=== PATIENT | female | born 1985 | race African-American/Black ===

== ENCOUNTER 2017-11-11 04:40 | Emergency (ER) | payer SELFPAY ==
[2017-11-11 05:02] VITALS: BMI 32.2
--- NOTE | 2017-11-11 05:59 | PDOC ---
History of Present Illness - General Chief Complaint: Cold Symptoms Stated Complaint: COUGH WITH CHEST PAIN Time Seen by Provider: 11/11/17 05:04 History Source: Patient Exam Limitations: No Limitations - History of Present Illness Initial Comments: 11/11/17 05:54 Patient is a 31-year-old female with history of seasonal allergies, PE, C- section 1 complaining of cough, congestion, body ache, sneezing and chest pain with coughing 3 days. States her daughter was sick times one week. Denies fever , shortness of breath, palpitations. PMHX: As above PSOCHX: occ etoh, neg drug, neg cig ALL: NKDA GENERAL/CONSTITUTIONAL: [No fever or chills. No weakness. No weight change.] HEAD, EYES, EARS, NOSE AND THROAT: [No change in vision. No ear pain or discharge. No sore throat.] CARDIOVASCULAR: [No chest pain or shortness of breath.] RESPIRATORY: (+) cough, (-) wheezing, or hemoptysis.] GASTROINTESTINAL: [No nausea, vomiting, diarrhea or constipation. No rectal bleeding.] GENITOURINARY: [No dysuria, frequency, or change in urination.] MUSCULOSKELETAL: [No joint or muscle swelling or pain. No neck or back pain.] SKIN AND BREASTS: [No rash or easy bruising.] NEUROLOGIC: [No headache, vertigo, loss of consciousness, or loss of sensation.] PSYCHIATRIC: [No depression or anxiety.] ENDOCRINE: [No increased thirst. No abnormal weight change.] HEMATOLOGIC/LYMPHATIC: [No anemia, easy bleeding, or history of blood clots.] ALLERGIC/IMMUNOLOGIC: [No hives or skin allergy. No latex allergy.] GENERAL: [The patient is awake, alert, and fully oriented, in mild distress.] HEAD: [Normal with no signs of trauma.] EYES: [Pupils equal, round and reactive to light, extraocular movements intact, sclera anicteric, conjunctiva clear.] ENT: [Ears normal, nares patent, oropharynx clear without exudates. Moist mucous membranes, (+) rhinorrhea] NECK: [Normal range of motion, supple without lymphadenopathy, JVD, or masses.] LUNGS: [Breath sounds equal, clear to auscultation bilaterally. No wheezes, and no crackles.] HEART: [Regular rate and rhythm, normal S1 and S2 without murmur, rub.] ABDOMEN: [Soft, nontender, normoactive bowel sounds. No guarding, no rebound. No masses.] EXTREMITIES: [Normal range of motion, no edema. No clubbing or cyanosis. No cords, erythema, or tenderness.] NEUROLOGICAL: [Cranial nerves II through XII grossly intact. Normal speech, normal gait.] PSYCH: [Normal mood, normal affect.] SKIN: [Warm, Dry, normal turgor, no rashes or lesions noted.] Past History - Past Medical History Allergies/Adverse Reactions: Allergies Allergy/AdvReac Type Severity Reaction Status Date / Time No Known Allergies Allergy Verified 11/11/17 05:01 Home Medications: Ambulatory Orders NK [No Known Home Medication] 11/11/17 COPD: No - Immunization History Immunization Up to Date: No - Suicide/Smoking/Psychosocial Hx Smoking History: Never smoked Have you smoked in the past 12 months: No Information on smoking cessation initiated: No Hx Alcohol Use: No Drug/Substance Use Hx: No *Physical Exam - Vital Signs Last Vital Signs Temp Pulse Resp BP Pulse Ox 98.5 F 98 H 20 113/65 99 11/11/17 04:42 11/11/17 04:42 11/11/17 04:42 11/11/17 04:42 11/11/17 04:42 Medical Decision Making - Medical Decision Making 11/11/17 05:59 Patient is a 31-year-old female with history of seasonal allergies, PE, C- section 1 complaining of cough, congestion, body ache, sneezing and chest pain with coughing 3 days, consitient with viral illness. cxr r/o pneumonia, flu swab Influenza neg upreg neg cxr pending I discussed the physical exam findings, ancillary test results and final diagnoses with the patient. I answered all of the patient's questions. The patient was satisfied with the care received and felt comfortable with the discharge plan and treatment plan. The Patient agrees to follow up with the primary care physician within 24-72 hours. Endorsed to to [facility] pending cxr anticipate discharge *DC/Admit/Observation/Transfer Diagnosis at time of Disposition: Upper respiratory infection Qualifiers: URI type: unspecified viral URI Qualified Code(s): J06.9 - Acute upper respiratory infection, unspecified - Discharge Dispostion Disposition: HOME Condition at time of disposition: Stable - Referrals - Patient Instructions Printed Discharge Instructions: DI for Viral Upper Respiratory Infection -- Adult Additional Instructions: Your Discharge Instructions: You must call primary care physician within 24 hours to arrange follow-up. Return to the Emergency Department with any new, persistent or worsening symptoms, for fever, chills, SOB, dizziness or any other concerning changes that may occur. - Post Discharge Activity
--- NOTE | 2017-11-11 07:24 | PDOC ---
ED Treatment Course - ADDITIONAL ORDERS Additional order review: 11/11/17 06:10 Influenza Types A,B Antigen (JULISA) - Final Nasopharyngeal Swab - Final Progress Note - Progress Note Progress Note: I have received report from BERTIN Headley regarding this patient. Pt's initial chief complaint: flu like symptoms Pt's work up completed prior to sign out: flu swab, hcg Pt treatment given from prior staff: none Pt plan to be completed: CXR Dispo: Most likely discharge Medical Decision Making - Medical Decision Making A/P: 31 y/o afebrile female with flu like symptoms. Influenza and hcg negative. Waiting for CXR. Anticipate discharge. CXR IMPRESSION: Patchy airspace disease/pneumonic infiltrates in the left mid and lower lung. Follow up is needed. Will discharge the patient home with rx for abx to treat pna. Instructed the patient to f/u with Dr. Coon within 2 weeks to have repeat chest xray, and to return to the ER sooner with any worsening or concerning symptoms. The patient verbalizes understanding of all instructions, has no further questions and is awaiting discharge. *DC/Admit/Observation/Transfer Diagnosis at time of Disposition: Community acquired pneumonia Qualifiers: Laterality: left Lung location: lower lobe of lung Qualified Code(s): J18.1 - Lobar pneumonia, unspecified organism - Discharge Dispostion Disposition: HOME Condition at time of disposition: Stable - Prescriptions Prescriptions: Azithromycin [Zithromax 250mg Tablets -] 250 mg PO UTDICT #6 tab - Referrals Referrals: Julio Coon MD [Staff Physician] - - Patient Instructions Printed Discharge Instructions: DI for Pneumonia -- Adult Additional Instructions: Your Discharge Instructions: You must call primary care physician within 24 hours to arrange follow-up. Return to the Emergency Department with any new, persistent or worsening symptoms, for fever, chills, SOB, dizziness or any other concerning changes that may occur. Please take antibiotics as directed and follow up with Dr. Coon in 2 weeks for repeat chest xray. - Post Discharge Activity Forms/Work/School Notes: Back to Work
[2017-11-11] MEDS ORDERED: ACETAMINOPHEN 325 MG TABLET (FP) PO ONE (09:45)
[2017-11-11] MEDS ORDERED: ACETAMINOPHEN 325 MG TABLET (FP) ONE (09:46)
[2017-11-11 09:50] VITALS: BP 116/80; PULSE 119; TEMP 101
== END 2017-11-11 09:50 | disposition home or self-care (01) ==
LOC: JER 04:40
DX: J06.9 Acute upper respiratory infection, unspecified (principal); B97.89 Other viral agents as the cause of diseases classified elsewhere
CPT/HCPCS: 71046-TC-FY; 84703; 87804; 99282-25

== ENCOUNTER 2020-01-02 17:12 | Emergency (ER) | payer SELFPAY ==
[2020-01-02 17:26] VITALS: BP 124/80; TEMP 98.2; BMI 34.7
[2020-01-02 18:05] VITALS: PULSE 87
--- NOTE | 2020-01-02 18:32 | PDOC ---
History of Present Illness - General Chief Complaint: Pain Stated Complaint: CHEST TIGHTNESS/DIARRHEA Time Seen by Provider: 01/02/20 17:47 History Source: Patient Exam Limitations: No Limitations - History of Present Illness Initial Comments: 01/02/20 18:23 34-year-old female presents to ED with complaints of right-sided chest pain which describes an aching sensation worsened with movement and deep breathing. Patient also states symptoms have been intermittent for the past 2 weeks and initially started with a runny nose. Patient also states had 2 episodes of diarrhea yesterday and today. Otherwise patient denies fever, chills, weakness, dizziness, palpitations or difficulty breathing Presenting Symptoms: Chest Pain Timing/Duration: reports: intermittent Severity/Quality: reports: mild, pressure Location: reports: substernal (rt) Chest Pain Radiation: reports: no radiation Activities at Onset: reports: none Prior Chest Pain/Cardiac Workup: reports: No prior chest pain Modifying Factors: improves with: movement Past History - Travel Traveled outside of the country in the last 30 days: No Close contact w/someone who was outside of country & ill: No - Past Medical History Allergies/Adverse Reactions: Allergies Allergy/AdvReac Type Severity Reaction Status Date / Time No Known Allergies Allergy Verified 01/02/20 17:26 Home Medications: Ambulatory Orders Azithromycin 250 mg PO DAILY #6 tablet 11/11/17 COPD: No - Immunization History Immunization Up to Date: No - Psycho Social/Smoking Cessation Hx Smoking History: Never smoked Have you smoked in the past 12 months: No Hx Alcohol Use: No Drug/Substance Use Hx: No Patient Lives Alone: No Lives with/in: spouse/SO Review of Systems - Review of Systems Able to Perform ROS?: Yes Constitutional: No: Symptoms Reported HEENTM: No: Symptoms Reported Respiratory: No: Symptoms reported Cardiac (ROS): No: Symptoms Reported ABD/GI: No: Symptoms Reported Musculoskeletal: No: Symptoms Reported Integumentary: No: Symptoms Reported Neurological: No: Symptoms reported *Physical Exam - Vital Signs Last Vital Signs Temp Pulse Resp BP Pulse Ox 98.2 F 87 18 124/80 99 01/02/20 17:20 01/02/20 18:05 01/02/20 17:20 01/02/20 17:20 01/02/20 17:20 - Physical Exam General Appearance: Yes: Nourished, Appropriately Dressed. No: Apparent Distress HEENT: negative: Pale Conjunctivae Neck: positive: Supple Respiratory/Chest: positive: Lungs Clear, Normal Breath Sounds. negative: Chest Tender, Respiratory Distress, Accessory Muscle Use Cardiovascular: positive: Regular Rhythm, Regular Rate. negative: Murmur Gastrointestinal/Abdominal: positive: Soft. negative: Tenderness Integumentary: positive: Normal Color, Warm, Moist Neurologic: positive: Motor Strength 5/5 (Ambulatory) Heart Score/ECG Review - ECG Intrepretation Rhythm: Regular Rhythm (Normal sinus rhythm rate [address] elevation or depression intervals are regular) ED Treatment Course - RADIOLOGY Radiology Studies Ordered: Category Date Time Status CHEST X-RAY PORTABLE* [RAD] Stat Radiology 01/02/20 17:51 Ordered Medical Decision Making - Medical Decision Making 01/02/20 18:3 Chief complaint: Intermittent right-sided chest pain for the past few weeks. Patient states initially started with runny nose and chest pain which then resolved a few days later now chest pain has returned along with 2 bouts of diarrhea for the past 2 days no other complaints exam: No reproducible chest pain. Vital signs stable. Chest x-ray without acute pathology normal sinus rhythm on EKG rate 87 Plan discharge home Discharge - Discharge Information Problems reviewed: Yes Clinical Impression/Diagnosis: Right-sided chest pain Condition: Good Disposition: HOME - Follow up/Referral - Patient Discharge Instructions Patient Printed Discharge Instructions: DI for Chest Pain Additional Instructions: May take Tylenol for discomfort. Observe for worsening symptoms such as shortness of breath, fever, or palpitations. If the symptoms are noted and continue to worsen please follow-up with your PCP and/or go to the ER - Post Discharge Activity
--- NOTE | 2020-01-04 14:44 | EKG ---
Test Reason : Blood Pressure : / mmHG Vent. Rate : 087 BPM Atrial Rate : 087 BPM P-R Int : 140 ms QRS Dur : 078 ms QT Int : 358 ms P-R-T Axes : 025 047 -05 degrees QTc Int : 430 ms NORMAL SINUS RHYTHM NORMAL ECG NO PREVIOUS ECGS AVAILABLE Confirmed by JYOTI TOWNSEND MD ([id number]) on 01/04/2020 2:44:12 PM Referred By: Confirmed By:JYOTI TOWNSEND MD
== END 2020-01-02 18:40 | disposition home or self-care (01) ==
LOC: JERFT 17:12
DX: R07.89 Other chest pain (principal)
CPT/HCPCS: 71045-TC-FY; 93005; 93010; 99284-25

== ENCOUNTER 2022-02-03 20:04 | Emergency (ER) | payer SELFPAY ==
[2022-02-03 20:07] VITALS: BP 114/74; PULSE 112; TEMP 97.8; BMI 29.2
[2022-02-03] MEDS ORDERED: IBUPROFEN 400 MG TABLET (FP) PO ONE ×2 (21:02→21:48)
[2022-02-03] MEDS ORDERED: HYDROCORTISONE 1% TOPICAL CREAM 30 GM TUBE TP PRN (21:02)
[2022-02-03] MEDS ORDERED: ACETAMINOPHEN 500 MG TABLET (FP) PO ONE (21:02)
[2022-02-03] MEDS ORDERED: LIDOCAINE HCL 2% JELLY 10 ML CARTRIDGE PR ONE (21:06)
[2022-02-03] MEDS ORDERED: ACETAMINOPHEN 325 MG TABLET (FP) ONE (21:48)
[2022-02-03] MEDS ORDERED: LIDOCAINE HCL 2% JELLY 10 ML CARTRIDGE ONE (21:48)
== END 2022-02-03 22:19 | disposition home or self-care (01) ==
LOC: JER 20:04
DX: K62.89 Other specified diseases of anus and rectum (principal); K64.8 Other hemorrhoids
CPT/HCPCS: 99283-25

== ENCOUNTER 2023-03-16 09:41 | Emergency (ER) | payer SELFPAY ==
[2023-03-16 09:54] VITALS: BP 116/72; PULSE 86; RESP 18; TEMP 98.5; BMI 26.5
[2023-03-16] MEDS ORDERED: KETOROLAC TROMETHAMINE 30 MG/1 ML VIAL IM ONE (10:16)
[2023-03-16] MEDS ORDERED: KETOROLAC TROMETHAMINE 30 MG/1 ML VIAL ONE (10:20)
== END 2023-03-16 11:27 | disposition home or self-care (01) ==
LOC: JERFT 09:41
PROC: 3E0233Z Introduction of Anti-inflammatory into Muscle, Percutaneous Approach (ICD-10-PCS; principal; 2023-03-16)
DX: K64.0 First degree hemorrhoids (principal); K62.5 Hemorrhage of anus and rectum; K62.89 Other specified diseases of anus and rectum
CPT/HCPCS: 99284-25